=== PATIENT | female | born 1965 | race Caucasian/White ===

== ENCOUNTER 2023-12-22 14:07 | Outpatient (REF) | payer SELFPAY | END 2023-12-22 14:08 | disposition home or self-care (01) | LOC: HO.HAP 14:07 | PROVIDERS: Visit Provider Family Medicine | DX: H93.293 Other abnormal auditory perceptions, bilateral (principal) | CPT/HCPCS: 92700 ==

== ENCOUNTER 2025-04-09 14:55 | Outpatient (REF) | payer SELFPAY | END 2025-04-09 14:56 | disposition home or self-care (01) | LOC: HO.HAP 14:55 | PROVIDERS: Visit Provider Family Medicine | DX: Z46.1 Encounter for fitting and adjustment of hearing aid (principal); H61.23 Impacted cerumen, bilateral | CPT/HCPCS: 92700 ==